=== PATIENT | male | born 1985 | race Caucasian/White ===

== ENCOUNTER 2016-07-12 07:48 | Emergency (ER) | payer OTHER ==
[~2016-07-12] VITALS: Ht 177.8 cm; Wt 74.8 kg
[~2016-07-12 07:48] MED LIST: METHADONE H5 MG/5 ML PO
[2016-07-12 07:51] VITALS: BP 146/87
--- NOTE | 2016-07-12 07:58 | ED THROAT/DENTAL COMPLAINT ---
History of Present Illness General Chief Complaint: Sore Throat, Dental Pain Stated Complaint: SORE THROAT Source: patient Exam Limitations: no limitations Vital Signs & Intake/Output Vital Signs & Intake/Output Vital Signs Date Time Temp Pulse Resp B/P Pulse O2 O2 Flow FiO2 Ox Delivery Rate 07/12 0828 97 07/12 0751 97.9 110 18 146/87 97 Room Air Room Air Allergies Coded Allergies: Penicillins (was told by [employer] 07/12/16) Reconcile Medications Amoxicillin 500 MG TABLET 1 TAB PO TID LYMPHADENITIS Triage Note: TRIAGE: 31 Y/O MALE PRESENTS C/O 3[birth year]09[birth year]29 LEFT SIDED SORE THROAT. PAIN INCREASES WITH SWALLOWING. AFEBRILE IN TRIAGE. Triage Nurses Notes Reviewed? yes HPI: Patient states that he woke up yesterday morning and noticed a bump underneath his left jaw that was very painful. Patient states that he had a sore throat but had no difficulty swallowing or breathing. Patient states that it did not even hurt to swallow. The pain was achy pain that he rated as a 6 out of 10. There is no radiation and no aggravating or mitigating factors. This morning he woke up with the pain was down 01 out of 10 however was still present so he went to his grandfathers told him to come to the emergency room for evaluation. Patient denies any fevers or chills. Past History Travel History Traveled to [place] past 21 day No Medical History Any Pertinent Medical History? 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 No Review of Systems Review of Systems Constitutional: Reports: no symptoms. EENTM: Reports: see HPI, throat pain. Respiratory: Reports: no symptoms. Cardiovascular: Reports: no symptoms. Musculoskeletal: Reports: no symptoms. Neurological/Psychological: Reports: no symptoms. Physical Exam Physical Exam General Appearance: well developed/nourished, alert, awake Head: atraumatic Eyes: Bilateral: PERRL, EOMI. Ears: Bilateral: canal normal, Tympanic normal. Mouth/Throat: TONSILLAR ERYTHEMA BUT NO EXUDATES Neck: lymphadenopathy (L) Cardiovascular/Respiratory: normal breath sounds, normal peripheral pulses, regular rate/rhythm, no respiratory distress Neurologic/Psych: no motor/sensory deficits, awake, alert, oriented x 3, normal gait, normal mood/affect Core Measures ACS in differential dx? No Severe Sepsis Present: No Septic Shock Present: No Progress Differential Diagnosis: strep pharyngitis, LYMPHADENITIS Plan of Care: Orders Procedure Date/time Status THROAT CULTURE W/QUICK STREP 07/12 0758 Active Departure Departure Disposition: HOME OR SELF CARE Condition: Stable Clinical Impression Primary Impression: Lymphadenitis Referrals: PATIENT HAS NO PRIMARY CARE DR (PCP/Family) Additional Instructions: DRINK PELNTY OF FLUIDS START THE AMOXIL IF YOUR SYMPTOMS WORSEN RETURN IF SYMPTOMS WORSEN OR FOR ANY CONCERNS Departure Forms: Customer Survey General Discharge Information Prescriptions: Current Visit Scripts Amoxicillin 1 TAB PO TID #30 TAB
[2016-07-12] MEDS ORDERED: AMOXICILLIN500 M3 PO (08:32)
== END 2016-07-12 08:38 ==
LOC: ERH 07:48
DX: I88.9 Nonspecific lymphadenitis, unspecified (principal)